=== PATIENT | female | born 1950 | race Caucasian/White ===

== ENCOUNTER 2020-05-28 09:26 | Observation (INO) | payer MEDICARE, SELFPAY ==
[2020-05-28] VITALS (15 sets, daily range): BP systolic 94–151; BP diastolic 43–100; PULSE 54–127; RESP 15–22; TEMP 36.6–36.9; O2SAT 92–98; BMI 29.1
--- NOTE | 2020-05-28 09:48 | ED_ITS ---
HPI - Arrhythmia/Palpitations General: Chief Complaint: Arrhythmia/Palpitations Stated Complaint: POSS AFIB Time Seen by Provider: 05/28/20 09:39 History of Present Illness: HPI narrative: 77-year-old female with a known history of atrial fibrillation began having palpitations last night she denies any chest pain she did get lightheaded and dizzy felt like she is in a pass out spontaneously try and go to the bathroom. Is only happened that one time. She normally has fairly good control of her atrial fibrillation she does have a history of coronary artery disease and had a stent placed 2 years ago. She currently is on clopidogrel but no other anticoagulants. She also has a history of hypothyroidism. MD complaint: rapid heart beat, heart racing and atrial fibrillation Onset (ago): hour(s) Duration: constant Severity: moderate Context: occurred during rest Arrhythmia history: atrial fibrillation Associated symptoms: Deny anxiety, cough, diaphoresis, muscle cramps, nausea, paresthesias, pre-syncope, sense of impending doom, short of breath, syncope or vomiting Treatments prior to arrival: beta-eugene (Took last night at her usual time) Review of Systems Const: Denies: diaphoresis ENMT: Denies: throat pain, ear or mastoid pain, nasal discharge or nasal congestion Card: Denies: syncope or pre-syncope Resp: Denies: dyspnea, productive cough or non-productive cough GI: Denies: nausea or vomiting : Denies: flank pain, difficulty voiding, dysuria, urinary frequency or urinary urgency Musc: Denies: muscle cramps Skin/Breast: Denies: rash or pruritus Psych: Denies: anxiety PFSH ED PFSH: Medical History (Updated 05/28/20 @ 20:50 by Corrina Calero MD) ASHD (arteriosclerotic heart disease) Atherosclerosis of coronary artery of [place] heart without angina pectoris Atrial fibrillation Benign essential hypertension with target blood pressure below 140/90 Dyslipidemia Alma's thyroiditis Hypothyroidism Intermittent atrial fibrillation Surgical History S/P hysterectomy Family History Other CAD (coronary artery disease) Diabetes Social History Smoking and tobacco status: never smoked Alcohol intake: never Household members: spouse Marital status: Physical Exam Const: COMMON NORMALS: no acute distress GENERAL APPEARANCE: cooperative and comfortable ORIENTATION/CONSCIOUSNESS: Yes awake, Yes oriented to person, Yes oriented to place and Yes oriented to time HENMT: COMMON NORMALS: normocephalic, atraumatic and hearing grossly normal bilaterally HEAD & SCALP: normocephalic and atraumatic Eye: COMMON NORMALS: Equal, round and reactive pupils present, EOMs intact bilaterally, conjunctivae normal and no scleral icterus CONJUNCTIVA: Yes conjunctivae normal PUPIL: Yes Equal, round and reactive pupils present Neck/C-Spine: COMMON NORMALS: full ROM, no lymphadenopathy and supple Lymph: LYMPHATIC: no lymphadenopathy noted and no lymphedema noted Resp: COMMON NORMALS: normal respiratory effort, No retractions, No use of accessory muscles and clear to auscultation bilaterally AUSCULTATION: clear to auscultation bilaterally Cardio: RATE: tachycardic RHYTHM: abnormal rhythm irregularly irregular GI: COMMON NORMALS: Soft to palpation and No hepatosplenomegaly present AUSCULTATION: Yes normoactive bowel sounds PALPATION: Yes Soft to palpation, No Tenderness to palpation present (GI), No Guarding due to palpation present (GI) and Yes No hepatosplenomegaly present Extremity: COMMON NORMALS: normal to inspection, capillary refill normal, no clubbing, cyanosis or edema, no calf tenderness and no pedal edema Neuro: SENSORIUM/ORIENTATION: Yes oriented to person, Yes oriented to place and Yes oriented to time Skin: COMMON NORMALS: no rashes or lesions noted GENERAL SKIN EXAM: no rashes or lesions noted Course Vital Signs: Vital signs: Vital Signs Temperature 98.2 F 05/29/20 04:00 Pulse Rate 48 L 05/29/20 04:00 Respiratory Rate 16 05/29/20 04:00 Blood Pressure 113/43 05/29/20 04:00 Pulse Oximetry 96 05/29/20 04:00 MDM - Arrhythmia/Palpitations MDM Narrative: Medical decision making narrative: Multiple attempts to control rate or convert. Patient denies any chest pain Trend remained at rest was relatively asymptomatic. Initially gave her 5 mg of IV Lopressor and an oral dose of Lopressor she had no real significant effect from either of those medications diltiazem was started she had good control of rate with a rate suppressed into the 80s however after a time when we discontinued the diltiazem to see if the rate would be maintained she resumed her rapid heart rate. Discussed with the patient she was maintaining a heart rate in the 110s to 120s while at rest with no exertional effort. Recommend that we put her on observation for further evaluation rate control and consideration of anticoagulation. Discussed with Dr. Miranda he will admit. Lab Data: Labs: Lab Results 05/28/20 05/28/20 05/28/20 Range/Units 09:47 09:47 09:47 WBC 5.8 (4.0-10.0) 10^3/ uL RBC 4.50 (4.1-5.3) 10^6/u L Hgb 13.9 (11.5-15.3) g/dL Hct 43.7 (37.0-47.0) % MCV 97.1 (81-99) fL MCH 30.9 (28.0-34.0) pg MCHC 31.8 (30.0-36.0) g/dL RDW 13.2 (12.1-15.1) % Plt Count 270 (130-400) 10^3/c mm MPV 11.2 H (7.4-10.4) fL Neut % (Auto) 76.7 % Lymph % (Auto) 16.0 % [place] % (Auto) 5.6 % Eos % (Auto) 1.2 % Baso % (Auto) 0.3 % Neut # (Auto) 4.41 (1.8-7.7) 10^3/u L Lymph # (Auto) 0.9 (0.8-4.8) 10^3/u L [place] # (Auto) 0.3 (0.2-0.9) 10^3/u L Eos # (Auto) 0.1 (0.0-0.8) 10^3/u L Baso # (Auto) 0.0 (0.0-0.1) 10^3/u L Nucleated RBC % (a uto) 0 % Nucleated RBCs # 0.0 /100WBC Sodium 142 (136-145) mmol/L Potassium 4.4 (3.5-5.1) mmol/L Chloride 108 H (98-107) mmol/L Carbon Dioxide 24 (22-29) mmol/L Anion Gap 14.4 (5-19) BUN 14 (8-23) mg/dL Creatinine 0.7 (0.5-0.9) mg/dL GFR Calculation Not Reportable Glucose 136 H (65-115) mg/dL Calculated Osmolal ity 297 H (285-295) mOsm/k g Calcium 9.5 (8.5-10.5) mg/dL Troponin T Baselin e 8 (0-10) ng/L Troponin T 120 Min malachi (0-10) ng/L Delta Troponin T (0-10) ABS# TSH 1.41 (0.27-4.20) uIU/ mL 05/28/20 Range/Units 12:06 WBC (4.0-10.0) 10^3/ uL RBC (4.1-5.3) 10^6/u L Hgb (11.5-15.3) g/dL Hct (37.0-47.0) % MCV (81-99) fL MCH (28.0-34.0) pg MCHC (30.0-36.0) g/dL RDW (12.1-15.1) % Plt Count (130-400) 10^3/c mm MPV (7.4-10.4) fL Neut % (Auto) % Lymph % (Auto) % [place] % (Auto) % Eos % (Auto) % Baso % (Auto) % Neut # (Auto) (1.8-7.7) 10^3/u L Lymph # (Auto) (0.8-4.8) 10^3/u L [place] # (Auto) (0.2-0.9) 10^3/u L Eos # (Auto) (0.0-0.8) 10^3/u L Baso # (Auto) (0.0-0.1) 10^3/u L Nucleated RBC % (a uto) % Nucleated RBCs # /100WBC Sodium (136-145) mmol/L Potassium (3.5-5.1) mmol/L Chloride (98-107) mmol/L Carbon Dioxide (22-29) mmol/L Anion Gap (5-19) BUN (8-23) mg/dL Creatinine (0.5-0.9) mg/dL GFR Calculation Glucose (65-115) mg/dL Calculated Osmolal ity (285-295) mOsm/k g Calcium (8.5-10.5) mg/dL Troponin T Baselin e (0-10) ng/L Troponin T 120 Min malachi 7.30 (0-10) ng/L Delta Troponin T -0.70 L (0-10) ABS# TSH (0.27-4.20) uIU/ mL Discharge Plan Discharge Admit Provider: Thony Suarez Discharge Date/Time: 05/28/20 13:34 Coding Level of Care Code ED Glass Toughening Operator for Chg Fwd Exam Comprehensive
--- NOTE | 2020-05-28 09:49 | ECG_ITS ---
[facility] Test Date: 2020-05-28 Pat Name: Harpreet Rouse Department: Room: Gender: Female Clinical Massage Therapist: : 1950 Requested By: Cole Woods Order Number: [id number] Collins MD: Romaine Kiser M.D. Measurements Intervals [place] Rate: 129 P: ID: -1 QRS: -19 QRSD: 88 T: 65 QT: 285 QTc: 418 Interpretive Statements ATRIAL FIBRILLATION WITH RAPID VENTRICULAR RESPONSE MODERATE ST DEPRESSION [0.05+ mV ST DEPRESSION] Compared to ECG 03/07/2018 00:44:35 ST (T wave) deviation now present Sinus bradycardia no longer present Electronically Signed On 05-28-2020 19:07:34 CDT by Romaine Kiser M.D. [email or web address]/store/[id number] f
[2020-05-28 09:58] LABS: Basophils % 0.3 %; Eosinophils # 0.1 10^3/uL (0.0-0.8); Eosinophils % 1.2 %; Hematocrit 43.7 % (37.0-47.0); Hemoglobin 13.9 g/dL (11.5-15.3); Lymphocytes # 0.9 10^3/uL (0.8-4.8); Mean Corpuscular HGB Conc 31.8 g/dL (30.0-36.0); Mean Corpuscular Hemoglobin 30.9 pg (28.0-34.0); Mean Corpuscular Volume 97.1 fL (81-99); Mean Platelet Volume 11.2 fL (7.4-10.4); Monocytes # 0.3 10^3/uL (0.2-0.9); Monocytes % 5.6 %; Neutrophils # 4.41 10^3/uL (1.8-7.7); Neutrophils % 76.7 %; Nucleated Red Blood Cells % 0 %; Platelet Count 270 10^3/cmm (130-400); Red Cell Distribution Width 13.2 % (12.1-15.1); White Blood Count 5.8 10^3/uL (4.0-10.0)
[2020-05-28] MEDS: metoprolol tartrate 1 mg/1 mL SDV 5 mL 5 MG IV (09:59)
[2020-05-28] MEDS: metoprolol tartrate 25 mg Tablet PO (09:59)
[2020-05-28 10:16] LABS: Troponin(5th) Baseline 8 ng/L (0-10)
[2020-05-28 10:24] LABS: Anion Gap 14.4 (5-19); Blood Urea Nitrogen 14 mg/dL (8-23); Calcium 9.5 mg/dL (8.5-10.5); Carbon Dioxide 24 mmol/L (22-29); Chloride 108 mmol/L (98-107); Glucose 136 mg/dL (65-115); Osmolality Calculated 297 mOsm/kg (285-295); Potassium 4.4 mmol/L (3.5-5.1); Sodium 142 mmol/L (136-145); Thyroid Stimulating Hormone 1.41 uIU/mL (0.27-4.20)
--- NOTE | 2020-05-28 11:49 | ECG_ITS ---
[facility] Test Date: 2020-05-28 Pat Name: Harpreet Rouse Department: Room: 105 Gender: Female Bottom Stop Attacher: : 1950 Requested By: oCle Woods Order Number: [id number] Collins MD: Romaine Kiser M.D. Measurements Intervals [place] Rate: 115 P: NC: -1 QRS: -10 QRSD: 88 T: 63 QT: 322 QTc: 447 Interpretive Statements ATRIAL FIBRILLATION WITH RAPID VENTRICULAR RESPONSE MODERATE ST DEPRESSION [0.05+ mV ST DEPRESSION] Compared to ECG 05/28/2020 09:36:45 No significant changes Electronically Signed On 05-28-2020 19:36:31 CDT by Romaine Kiser M.D. [email or web address] [email or web address] county memorial hospitalVANDOLAYmercy health kings [facility].Coll[employer]/store/NU/[id number] f
--- NOTE | 2020-05-28 13:45 | PC.NURSE ---
Received pt from ER Pt is alert, oriented, denies any chest pain, not in distress. Cardizem drip running at 5 mcg/min from ER. Pt telemonitor shows afib with rvr 120s to 130s. Cardizem drip increased to 10 mcg/min per protocol. Oriented pt to staff, checked VS. Call light within reach. Informed pt on care plans. Pt verbalizes understanding. Dr. Suarez notified on pt's arrival to floor.
--- NOTE | 2020-05-28 15:49 | ECG_ITS ---
[facility] Test Date: 2020-05-28 Pat Name: Harpreet Rouse Department: Room: 105 Gender: Female Senior Hydrogeologist: : 1950 Requested By: Cole Woods Order Number: [id number] Collins MD: Romaine Kiser M.D. Measurements Intervals [place] Rate: 95 P: MT: -1 QRS: -17 QRSD: 92 T: 64 QT: 362 QTc: 455 Interpretive Statements ATRIAL FIBRILLATION WITH ABERRANT CONDUCTION OR VENTRICULAR PREMATURE COMPLEXES SEPTAL MYOCARDIAL INFARCTION [40+ ms Q WAVE IN V1/V2], PROBABLY OLD Compared to ECG 05/28/2020 12:16:05 Ventricular premature complex(es) now present Aberrant conduction of supraventricular beat(s) now present Myocardial infarct finding now present ST (T wave) deviation no longer present Electronically Signed On 05-28-2020 19:33:35 CDT by Romaine Kiser M.D. [email or web address] [email or web address] BioTherapeuticsholmes county [facility].[employer]/store/OM/[id number]/[id number]
[2020-05-28 16:34] LABS: Troponin 5 6HR 6.49 ng/L (0-10)
[2020-05-28 16:36] LABS: Troponin 5 6HR Delta -1.51 ng/L (0-12)
--- NOTE | 2020-05-28 19:00 | PC.NURSE ---
183-Pt converted to Sinus rhythm HR-52-60s BP-107/59, Pt is laying bed. Cardizem drip decreased to 5 mcg/min. Notified Dr. Suarez via voalte phone.
--- NOTE | 2020-05-28 19:00 | PC.NURSE ---
Informed doctor in person that pt converted to SR Informed him that pt takes Metoprolol Succinate ER 37.5 mg in the evening. She felt hot flush. BP-102/55 sitting in the edge of bed, HR-54s-65s. Received verbal orders read back to stop Cardizem drip and start pt back on her home metoprolol dose.
--- NOTE | 2020-05-28 19:45 | PC.NURSE ---
Received a call from Dr. Calero as consultation Talked to Dr. Calero via phone. Updated Dr on pt's conversion to Sinus rhythm, HR-50s-65s w/symptom of hot flush during this time. BP-102/55 while sitting on the edge of bed. stated he will come in and see the pt.
--- NOTE | 2020-05-28 20:08 | PM.CONSULT ---
Providers/Reason For Consult Consulting Physican/Specialty*: JODI Calero MD/cardiology Reason for Consult*: Patient with atrial fibrillation's and rapid ventricular rate Attending Physician: Thony Suarez Primary Care Provider: Jose Hill MD History of Present Illness History of Present Illness Harpreet Rouse is a 69 year old female with a history of atherosclerotic heart disease, dyslipidemia and hypothyroidism, is admitted to hospital through the emergency room where she presented with complaints of palpitation and dizziness. She was found to be in atrial fibrillation rapid ventricular rate. She was started on IV Cardizem. Cardiology consult is requested for further cardiac evaluation recommendations. This patient has a history of atrial fibrillation off and on for the last many years. Approximately 12 years ago, she had the first episode of atrial fibrillation. Her second episode was 2 years ago. At that time, she presented with the palpitation and chest pain. Subsequently she had a cardiac radiation followed by PCI of the obtuse marginal 1 artery. Apparently patient has not had any recurrence of atrial fibrillation up until last night. Around midnight, she started having palpitations. Throughout the night, she had the fluttering feeling in the chest. This morning as she woke up, she is was feeling dizzy with palpitation. For that reason, she decided to come to the hospital. She did not have any chest pain or any unusual shortness of breath. No syncopal episodes. No others associated symptoms. She has a history of hypothyroidism and is on thyroid supplement. She also is known to have dyslipidemia. Review of Systems Narrative: CONSTITUTIONAL: No fever or chills. EYES: No blurring of vision or other visual disturbances lately. ENT: No hoarseness of voice, auditory disturbances or sore throat. CARDIOVASCULAR: As mentioned above. RESPIRATORY: No significant cough. GASTROINTESTINAL: No hematemesis or melena. GENITOURINARY: No dysuria or hematuria. INTEGUMENTARY: No skin rashes or history of skin cancer. NEURO: No transient ischemic attacks or amaurosis. PSYCHIATRIC: No history of psychosis or major depression. HEMATOLOGIC: No bleeding disorders or significant anemia. ENDOCRINE: History of hypothyroidism MUSCULOSKELETAL: No recent joint pain or swelling. ALLERGY/IMMUNOLOGY: As mentioned above. Meds/Allergies Home Medications and Allergies Home Medications Medication Instructions Recorded Confirmed Last Taken Type clopidogrel 75 mg tablet 75 mg PO DAILY 02/21/20 05/28/20 05/28/20 History isosorbide mononitrate 30 mg 15 mg PO DAILY tab 02/21/20 05/28/20 05/27/20 History tablet,extended release 24 hr omeprazole magnesium 20 mg 20 mg PO DAILY PRN 02/21/20 05/28/20 Unknown History tablet,delayed release pravastatin 20 mg tablet 10 mg PO DAILY tab 02/21/20 05/28/20 05/27/20 History metoprolol succinate 25 mg 37.5 mg PO DAILY #30 tab 02/22/20 05/28/20 05/27/20 Rx tablet,extended release 24 hr levothyroxine [Euthyrox] 100 mcg PO DAILY 05/28/20 05/28/20 05/28/20 History Allergies Allergy/AdvReac Type Severity Reaction Status Date / Time No Known Allergies Allergy Verified 02/21/20 15:44 Current Medications Current Medications Generic Name Dose Route Start Last Admin Trade Name Freq PRN Reason Stop Dose Admin Diltiazem HCl 125 mg/ Sodium 125 mls @ 0 mls/hr 05/28/20 10:45 05/28/20 19:18 Chloride IV 0 mg/hr .Q0M ROXANA 0 mls/hr Titration Protocol Per Protocol PFSH Acute PFSH: Medical History ASHD (arteriosclerotic heart disease) Atherosclerosis of coronary artery of [place] heart without angina pectoris Atrial fibrillation Benign essential hypertension with target blood pressure below 140/90 Alma's thyroiditis Hypothyroidism Intermittent atrial fibrillation Surgical History S/P hysterectomy Family History Other CAD (coronary artery disease) Diabetes Social History Smoking and tobacco status: never smoked Alcohol intake: never Household members: spouse Marital status: Vitals/I&O/Wt Last Vital Signs Temp 97.8 F 05/28/20 19:13 Pulse 60 05/28/20 19:13 Resp 22 H 05/28/20 19:13 BP 99/58 05/28/20 19:13 Pulse Ox 96 05/28/20 19:13 05/28/20 05/28/20 05/28/20 06:59 14:59 22:59 Intake Total 16.500 / 16.500 652.167 / 668.667 Balance 16.500 / 16.500 652.167 / 668.667 Weight last 48 hrs Weight 175 lb Physical Exam Narrative: EXAM NARRATIVE: GENERAL: The patient is alert and oriented times three. Not in any acute distress. HEENT: No significant pallor, icterus or lymphadenopathy. The pupils are reactant to light. Oral cavity: There are no mucous membrane lesions. Funduscopic examination: Fundus is not visualized NECK: Trachea appears to be central. No masses noted. No JVD or thyromegaly appreciated. No carotid bruit. RESPIRATORY: Chest is symmetrical. No intercostals muscle retraction or any accessory muscle activation. There is no chest wall tenderness. Breath sounds are heard bilaterally. No rales or rhonchi heard. No evidence of any consolidation. BREASTS: Deferred. HEART: The PMI could not be palpated. First second heart sounds are normal. No S3. No severe murmurs. No pericardial rub. ABDOMEN: No vessel pulsations or distention. No tenderness. No organomegaly appreciated. No abdominal bruit. Bowel sounds are normally heard. : Deferred. RECTAL: Deferred. LYMPHATIC: No lymphadenopathy noted in the neck or groin. EXTREMITIES: No edema or cyanosis. No clubbing. The pulses are symmetrical bilaterally. The radial, femoral, dorsalis pedis and the posterior tibial pulses are palpated and found to be in good volume and amplitude. MUSCULOSKELETAL: No acute joint deformities or swelling. SKIN: There are no significant scars or skin rash noted. NEUROPSYCHIATRIC: The patient is alert and oriented x3. Appears to be in a good mood. The higher functions are grossly within normal limits. No tremors or rigidity noted. Data Labs: Other Labs: Laboratory Last Values WBC 5.8 10^3/uL (4.0- 10.0) 05/28/20 09:47 RBC 4.50 10^6/uL (4.1 -5.3) 05/28/20 09:47 Hgb 13.9 g/dL (11.5-1 5.3) 05/28/20 09:47 Hct 43.7 % (37.0-47.0 ) 05/28/20 09:47 MCV 97.1 fL (81-99) 05/28/20 09:47 MCH 30.9 pg (28.0-34. 0) 05/28/20 09:47 MCHC 31.8 g/dL (30.0-3 6.0) 05/28/20 09:47 RDW 13.2 % (12.1-15.1 ) 05/28/20 09:47 Plt Count 270 10^3/cmm (130 -400) 05/28/20 09:47 MPV 11.2 fL (7.4-10.4 ) H 05/28/20 09:47 Neut % (Auto) 76.7 % 05/28/20 09:47 Lymph % (Auto) 16.0 % 05/28/20 09:47 [place] % (Auto) 5.6 % 05/28/20 09:47 Eos % (Auto) 1.2 % 05/28/20 09:47 Baso % (Auto) 0.3 % 05/28/20 09:47 Neut # (Auto) 4.41 10^3/uL (1.8 -7.7) 05/28/20 09:47 Lymph # (Auto) 0.9 10^3/uL (0.8- 4.8) 05/28/20 09:47 [place] # (Auto) 0.3 10^3/uL (0.2- 0.9) 05/28/20 09:47 Eos # (Auto) 0.1 10^3/uL (0.0- 0.8) 05/28/20 09:47 Baso # (Auto) 0.0 10^3/uL (0.0- 0.1) 05/28/20 09:47 Nucleated RBC % (a uto) 0 % 05/28/20 09:47 Nucleated RBCs # 0.0 /100WBC 05/28/20 09:47 Sodium 142 mmol/L (136-1 45) 05/28/20 09:47 Potassium 4.4 mmol/L (3.5-5 .1) 05/28/20 09:47 Chloride 108 mmol/L (98-10 7) H 05/28/20 09:47 Carbon Dioxide 24 mmol/L (22-29) 05/28/20 09:47 Anion Gap 14.4 (5-19) 05/28/20 09:47 BUN 14 mg/dL (8-23) 05/28/20 09:47 Creatinine 0.7 mg/dL (0.5-0. 9) 05/28/20 09:47 GFR Calculation Not Reportable 05/28/20 09:47 Glucose 136 mg/dL (65-115 ) H 05/28/20 09:47 Calculated Osmolal ity 297 mOsm/kg (285- 295) H 05/28/20 09:47 Calcium 9.5 mg/dL (8.5-10 .5) 05/28/20 09:47 Troponin T Baselin e 8 ng/L (0-10) 05/28/20 09:47 Troponin T 120 Min malachi 7.30 ng/L (0-10) 05/28/20 12:06 Delta Troponin T -0.70 ABS# (0-10) L 05/28/20 12:06 Troponin T Hi Sens 6Hr 6.49 ng/L (0-10) 05/28/20 15:58 Troponin T Hi Sens 6Hr Delta -1.51 ng/L (0-12) L 05/28/20 15:58 TSH 1.41 uIU/mL (0.27 -4.20) 05/28/20 09:47 Cardiac catheterization in March 2018 revealed #1 Left main is normal #2 LAD has proximal 30% stenosis rest of vessel did not have any significant abnormality #3 LCx has luminal irregularities while obtuse marginal 1 is moderate size and caliber vessel which has proximal 75% napkin ring type lesion #4 RCA is a nondominant vessel with luminal irregularities The EKG revealed Atrial fibrillation with controlled ventricular response rate of 95 bpm. Abberrantly conducted beats/PVCs Possible old septal ND. Nonspecific ST changes in the anterolateral leads. A&P Assessment and plan (1) Intermittent atrial fibrillation: Patient has features of intermittent atrial fibrillation. Her episodes are very infrequent, I may hold off on any antiarrhythmic drugs at this time. We will go up on the metoprolol to 50 mg p.o. daily. Also may do an echocardiogram to evaluate the LV function and also the left atrium. If she has a dilated left atrium, we also may need to start her on long-term oral anticoagulation. I may start her on therapeutic dose of Lovenox for the time being. Status: Acute (2) Atherosclerosis of coronary artery of [place] heart without angina pectoris: Because of her previous history of coronary artery disease, presented with atrial fibrillation, I may go ahead and do a myocardial perfusion imaging, to rule out any underlying ischemia. After reviewing the results, further recommendations will be made. Status: Acute Qualifiers: Coronary Disease-Associated Artery/Lesion type: [place] artery Qualified Code(s): I25.10 - Atherosclerotic heart disease of [place] coronary artery without angina pectoris (3) Dyslipidemia: May continue on the current medications. Status: Acute (4) Hypothyroidism: May continue on the thyroid supplement. Status: Acute Qualifiers: Hypothyroidism type: due to Alma's thyroiditis Qualified Code(s): E03.8 - Other specified hypothyroidism; E06.3 - Autoimmune thyroiditis Additional A&P Information After reviewing the above and also based on the patient clinical progress, further recommendations will be made. Thank you for the opportunity to eval this patient make these recommendations Coding Level of Care Code Acute Is Technician for Joan Nicoled Diagnoses Intermittent atrial fibrillation I48.0 Atherosclerosis of coronary artery of [place] heart without angina pectoris I25.10 Coronary Disease-Associated Artery/Lesion type: [place] artery Dyslipidemia E78.5 Hypothyroidism E03.8; E06.3 Hypothyroidism type: due to Alma's thyroiditis
--- NOTE | 2020-05-28 20:27 | PM.HP ---
Providers/Chief Complaint Admitting Physician: Thony Suarez Primary Care Provider: Jose Hill MD Chief Complaint: POSS AFIB History of Present Illness Harpreet Rouse is a 69 year old female with past medical history of coronary artery disease and paroxysmal atrial fibrillation who presented to emergency room with complaints of new onset palpitations and associated lightheadedness and dizziness. Patient was found to have A. fib with RVR. Denies any associated chest pain or shortness of breath. No peripheral swelling. Reports similar episodes in the past. She was started on diltiazem drip and feels better currently. Review of Systems General: Reports: 10 or more systems reviewed and unremarkable except in HPI and below Medications/Allergies Home Medications Medication Instructions Recorded Confirmed Last Taken Type clopidogrel 75 mg tablet 75 mg PO DAILY 02/21/20 05/28/20 05/28/20 History isosorbide mononitrate 30 mg 15 mg PO DAILY tab 02/21/20 05/28/20 05/27/20 History tablet,extended release 24 hr omeprazole magnesium 20 mg 20 mg PO DAILY PRN 02/21/20 05/28/20 Unknown History tablet,delayed release pravastatin 20 mg tablet 10 mg PO DAILY tab 02/21/20 05/28/20 05/27/20 History metoprolol succinate 25 mg 37.5 mg PO DAILY #30 tab 02/22/20 05/28/20 05/27/20 Rx tablet,extended release 24 hr levothyroxine [Euthyrox] 100 mcg PO DAILY 05/28/20 05/28/20 05/28/20 History Allergies Allergy/AdvReac Type Severity Reaction Status Date / Time No Known Allergies Allergy Verified 02/21/20 15:44 PFSH Acute PFSH: Medical History ASHD (arteriosclerotic heart disease) Atherosclerosis of coronary artery of [place] heart without angina pectoris Atrial fibrillation Benign essential hypertension with target blood pressure below 140/90 Alma's thyroiditis Hypothyroidism Intermittent atrial fibrillation Surgical History S/P hysterectomy Family History Other CAD (coronary artery disease) Diabetes Social History Smoking and tobacco status: never smoked Alcohol intake: never Household members: spouse Marital status: Vitals/I&O/Wt Last Vital Signs Temp 97.8 F 05/28/20 19:13 Pulse 60 05/28/20 19:13 Resp 22 H 05/28/20 19:13 BP 99/58 05/28/20 19:13 Pulse Ox 96 05/28/20 19:13 05/28/20 05/28/20 05/28/20 06:59 14:59 22:59 Intake Total 16.500 / 16.500 648.167 / 664.667 Balance 16.500 / 16.500 648.167 / 664.667 Weight last 48 hrs Weight 79.379 kg Physical Exam Narrative: EXAM NARRATIVE: The patient is awake alert oriented. No acute distress. Mood and affect are appropriate. Responses are adequate. Skin is warm and dry. Moist mucous membranes. No JVD Lungs are clear to auscultation bilaterally. No respiratory distress Heart S1, S2, irregularly irregular Abdomen soft, nontender, bowel sounds are present Extremities trace edema no cyanosis no calf tenderness bilaterally Neuro examination is nonfocal. Normal speech. Eyes Az, extraocular muscles are intact. Data : 05/28/20 09:47 05/28/20 09:47 Other data: Laboratory Results WBC 5.8 10^3/uL (4.0-10.0) 05/28/20 09:47 RBC 4.50 10^6/uL (4.1-5.3) 05/28/20 09:47 Hgb 13.9 g/dL (11.5-15.3) 05/28/20 09:47 Hct 43.7 % (37.0-47.0) 05/28/20 09:47 MCV 97.1 fL (81-99) 05/28/20 09:47 MCH 30.9 pg (28.0-34.0) 05/28/20 09:47 MCHC 31.8 g/dL (30.0-36.0) 05/28/20 09:47 RDW 13.2 % (12.1-15.1) 05/28/20 09:47 Plt Count 270 10^3/cmm (130-400) 05/28/20 09:47 MPV 11.2 fL (7.4-10.4) H 05/28/20 09:47 Neut % (Auto) 76.7 % 05/28/20 09:47 Lymph % (Auto) 16.0 % 05/28/20 09:47 [place] % (Auto) 5.6 % 05/28/20 09:47 Eos % (Auto) 1.2 % 05/28/20 09:47 Baso % (Auto) 0.3 % 05/28/20 09:47 Neut # (Auto) 4.41 10^3/uL (1.8-7.7) 05/28/20 09:47 Lymph # (Auto) 0.9 10^3/uL (0.8-4.8) 05/28/20 09:47 [place] # (Auto) 0.3 10^3/uL (0.2-0.9) 05/28/20 09:47 Eos # (Auto) 0.1 10^3/uL (0.0-0.8) 05/28/20 09:47 Baso # (Auto) 0.0 10^3/uL (0.0-0.1) 05/28/20 09:47 Nucleated RBC % (auto) 0 % 05/28/20 09:47 Nucleated RBCs # 0.0 /100WBC 05/28/20 09:47 Sodium 142 mmol/L (136-145) 05/28/20 09:47 Potassium 4.4 mmol/L (3.5-5.1) 05/28/20 09:47 Chloride 108 mmol/L (98-107) H 05/28/20 09:47 Carbon Dioxide 24 mmol/L (22-29) 05/28/20 09:47 Anion Gap 14.4 (5-19) 05/28/20 09:47 BUN 14 mg/dL (8-23) 05/28/20 09:47 Creatinine 0.7 mg/dL (0.5-0.9) 05/28/20 09:47 GFR Calculation Not Reportable 05/28/20 09:47 Glucose 136 mg/dL (65-115) H 05/28/20 09:47 Calculated Osmolality 297 mOsm/kg (285-295) H 05/28/20 09:47 Calcium 9.5 mg/dL (8.5-10.5) 05/28/20 09:47 Troponin T Baseline 8 ng/L (0-10) 05/28/20 09:47 Troponin T 120 Minute 7.30 ng/L (0-10) 05/28/20 12:06 Delta Troponin T -0.70 ABS# (0-10) L 05/28/20 12:06 Troponin T Hi Sens 6Hr 6.49 ng/L (0-10) 05/28/20 15:58 Troponin T Hi Sens 6Hr Delta -1.51 ng/L (0-12) L 05/28/20 15:58 TSH 1.41 uIU/mL (0.27-4.20) 05/28/20 09:47 A&P Additional A&P Information 69-year-old female with past medical history of coronary artery disease, stent, paroxysmal A. fib who is presenting with palpitations and dizziness. A. fib with RVR. The patient is going to the cardiac unit with IV diltiazem. We will switch her to p.o. medications after initial stabilization. We will check her TSH. Will request cardiology consultation. I will discuss with the fish warden regarding anticoagulation. Her chads vasc score is 3. She is on Plavix for management of coronary artery disease. Coronary artery disease. We will continue her home medications. Currently stable. History of dyslipidemia. We will continue her statin. History of GERD. We will continue her home medication. DVT prophylaxis. Lovenox. Full code. The plan of care was discussed with the patient. I also discussed with Dr. Calero. I appreciate his input. Attestations Medical Necessity Statement*: Observation Coding Level of Care Code Acute Clinical Account Specialist for Joan Martinez
--- NOTE | 2020-05-28 20:32 | PC.NURSE ---
Dr. Calero in room Received verbal order read back to stop Metoprolol Succinate ER 37.5 mg. To give 50 mg dose now.
--- NOTE | 2020-05-28 20:41 | ECG_ITS ---
[facility] Test Date: 2020-05-29 Pat Name: Harpreet Rouse Department: Room: 105 Gender: Female Electronic Organ Technician: : [id number] Requested By: Corrina Calero Order Number: [id number] Collins MD: Corrina Calero M.D. Interpretive Statements NAME OF STUDY: LEXISCAN SESTAMIBI STRESS TEST INDICATION: ashd/afib, PROCEDURE: At the baseline, the EKG revealed sinus bradycardia with a rate of [address] changes. The baseline blood pressure was 118/65 mm Hg with a heart rate of 51 beats/min. Lexiscan was infused over a period of 20 seconds. A total of 0.4 milligrams of Lexiscan was infused. The stress phase was continued for a total of 5 minutes. Heart rate at the end of the stress phase was 65 with a blood pressure 135/63. The EKG at the peak infusion revealed no significant changes. Sestamibi was injected 20 seconds after the Lexiscan infusion. Blood pressure at the end of the recovery phase was 135/63 with a heart rate of 61 per minute. CONCLUSION: 1. No significant EKG changes with the LexiScan infusion 2. No LexiScan induced chest pain or cardiac arrhythmia 3. Normal blood pressure and heart rate response 4. Sestamibi/sestamibi perfusion scan pending; see separate report. Electronically Signed On 06-01-2020 17:47:46 CDT by Corrina Calero M.D. [id number]
[2020-05-28] MEDS: metoprolol succinate ER (24 HR) 50 mg Tablet PO (21:15)
[2020-05-28] MEDS: enoxaparin 80 mg/0.8 mL Syringe SUBCUT (21:16)
[2020-05-29] VITALS (9 sets, daily range): BP systolic 113–158; BP diastolic 43–72; PULSE 47–61; RESP 13–18; TEMP 36.3–36.8; O2SAT 95–98
--- NOTE | 2020-05-29 00:34 | ECG_ITS ---
[facility] Test Date: 2020-05-29 Pat Name: Harpreet Rouse Department: Room: 105 Gender: Female Agricultural Agent: : 1950 Requested By: Thony Broderick Order Number: [id number] Collins MD: Corrina Calero M.D. Measurements Intervals Harris Rate: 47 P: 62 DE: 144 QRS: -28 QRSD: 96 T: 37 QT: 487 QTc: 433 Interpretive Statements SINUS BRADYCARDIA BORDERLINE LEFT AXIS DEVIATION [QRS AXIS < -20] MINIMAL ST DEPRESSION [0.025+ mV ST DEPRESSION] Compared to ECG 05/28/2020 15:39:57 ST (T wave) deviation now present Atrial fibrillation no longer present Ventricular premature complex(es) no longer present Aberrant conduction of supraventricular beat(s) no longer present Myocardial infarct finding no longer present Electronically Signed On 05-29-2020 18:35:59 CDT by Corrina Calero M.D. [id number]
[2020-05-29 04:17] LABS: Basophils % 0.3 %; Eosinophils # 0.2 10^3/uL (0.0-0.8); Hematocrit 40.2 % (37.0-47.0); Hemoglobin 12.3 g/dL (11.5-15.3); Lymphocytes % 31.4 %; Mean Corpuscular HGB Conc 30.6 g/dL (30.0-36.0); Mean Corpuscular Hemoglobin 30.5 pg (28.0-34.0); Mean Corpuscular Volume 99.8 fL (81-99); Mean Platelet Volume 11.3 fL (7.4-10.4); Monocytes # 0.4 10^3/uL (0.2-0.9); Monocytes % 5.9 %; Neutrophils # 3.69 10^3/uL (1.8-7.7); Neutrophils % 59.2 %; Nucleated Red Blood Cells % 0 %; Platelet Count 238 10^3/cmm (130-400); Red Blood Count 4.03 10^6/uL (4.1-5.3); Red Cell Distribution Width 13.4 % (12.1-15.1); White Blood Count 6.2 10^3/uL (4.0-10.0)
[2020-05-29 04:51] LABS: Anion Gap 15.4 (5-19); Blood Urea Nitrogen 22 mg/dL (8-23); Calcium 8.7 mg/dL (8.5-10.5); Carbon Dioxide 24 mmol/L (22-29); Chloride 106 mmol/L (98-107); Glucose 98 mg/dL (65-115); Osmolality Calculated 295 mOsm/kg (285-295); Potassium 4.4 mmol/L (3.5-5.1); Sodium 141 mmol/L (136-145)
[2020-05-29 04:59] LABS: Alanine Aminotransferase 16 U/L (0-33); Albumin Level 3.7 g/dL (3.5-5.2); Alkaline Phosphatase 58 IU/L (35-105); Anion Gap 14.1 (5-19); Aspartate Amino Transferase 17 U/L (0-32); Blood Urea Nitrogen 24 mg/dL (8-23); Calcium 8.6 mg/dL (8.5-10.5); Carbon Dioxide 25 mmol/L (22-29); Chloride 106 mmol/L (98-107); Globulin 2.7 g/dL (1.3-4.6); Glucose 100 mg/dL (65-115); Osmolality Calculated 296 mOsm/kg (285-295); Potassium 4.1 mmol/L (3.5-5.1); Sodium 141 mmol/L (136-145); Total Bilirubin 0.5 mg/dL (0.15-1.2); Total Protein 6.4 g/dL (6.6-8.7)
[2020-05-29 05:05] LABS: Chol HDL Ratio 3.15 mg/dL (0.0-4.40); Cholesterol 170 mg/dL (0-200); HDL Cholesterol 54 mg/dL (60-100); LDL Cholesterol Calculated 91 mg/dL (50-129); LDL HDL Ratio 1.69 RATIO (0.00-3.22); Thyroid Stimulating Hormone 1.16 uIU/mL (0.27-4.20); Triglycerides 124 mg/dL (0-150)
--- NOTE | 2020-05-29 07:24 | PC.NURSE ---
Patient resting in bed at time of assessment. Patient denies any CP or SOB. Patient has been injected for stress test this am. Patient does not have any questions about procedure. No further needs identified at this time. Nurse to continue to monitor.
--- NOTE | 2020-05-29 07:41 | PC.NURSE ---
Patient to stress test. Stable at this time.
[2020-05-29] MEDS: regadenoson 0.4 Mg/5 ml Syringe IVP (08:12)
--- NOTE | 2020-05-29 09:59 | PC.NURSE ---
Patient back from stress test. HR 53, BP 158/72. Dr. Calero updated on patient condition. Physician gave telephone order to change metoprolol administration time to bedtime. RBVO. Nurse to continue to monitor.
[2020-05-29] MEDS: levothyroxine 100 mcg Tablet PO (10:08)
[2020-05-29] MEDS: clopidogrel 75 mg Tablet PO (10:08)
--- NOTE | 2020-05-29 13:59 | P.DS_ITS ---
Discharge Providers Date of Admission: 05/28/20 12:50 Date of Discharge: May 29, 2020 Attending Provider at Admission: Thony Suarez Attending Provider at Discharge: Thony Suarez Primary Care Provider: Jose Hill MD Diagnoses at Discharge Discharge Diagnosis (1) Intermittent atrial fibrillation: Status: Acute (2) Atherosclerosis of coronary artery of [place] heart without angina pectoris: Status: Acute Qualifiers: Coronary Disease-Associated Artery/Lesion type: [place] artery Qualified Code(s): I25.10 - Atherosclerotic heart disease of [place] coronary artery without angina pectoris (3) Dyslipidemia: Status: Acute (4) Hypothyroidism: Status: Acute Qualifiers: Hypothyroidism type: due to Alma's thyroiditis Qualified Code(s): E03.8 - Other specified hypothyroidism; E06.3 - Autoimmune thyroiditis Reason for Visit Reason for Visit: POSS AFIB Hospital Course Discharge Summary: This is a 69-year-old female with past medical history of atrial fibrillation and coronary artery disease who presented with complaints of palpitations. The patient was found to have A. fib with RVR. The patient was seen and evaluated by Dr. Calero. Medications were adjusted. Currently in sinus. Started on anticoagulation. Will be switched to Eliquis per Dr. Frausto recommendations at discharge. Metoprolol dose is increased. She will continue follow-up with her primary home care provider Dr. Zuniga. Underwent nuclear stress test. IMPRESSIONS 1. Myocardial perfusion may revealing patchy areas of persistent decreases uptake in the anterior wall and inferior wall regions, most likely represent attenuation artifacts. 2. Normal LV ejection fraction of 72% 3. LV wall motion analysis revealing no gross wall motion normalities. 4. Normal LV volume. 5. Slightly elevated transient ischemic dilatation ratio, may suggest endocardial ischemia. However the positive predictive value this finding is limited. Clinical correlation is recommended. Dr. Calero recommended medical management and outpatient follow-up with Dr. Zuniga. He recommended to continue Plavix for now. Echo conclusions Normal left ventricular size and systolic function, EF 57 %. No regional wall motion abnormalities. Mild biatrial enlargement Thickened aortic valve. Mild tricuspid valve regurgitation. Normal pulmonary artery peak systolic pressure. There is no pericardial effusion. There are no intracardiac masses. No previous study is available for comparison. Dr. Calero recommended to continue anticoagulation to prevent CVA. The patient was informed about changes to her medications. She verbalized understanding of the instructions. The patient was also asked to come back to emergency room if she develops any new cardiac or other issues including symptoms of GI bleeding such as lightheadedness dizziness shortness of breath rectal blood or black stool She is doing well and is eager to go home. Denies any chest pain, palpitations, shortness of breath, lightheadedness or dizziness. Physical Exam Narrative: EXAM NARRATIVE: The patient is awake alert oriented. No acute distress. Mood and affect are appropriate. Responses are adequate. Skin is warm and dry. Moist mucous membranes. No JVD Lungs are clear to auscultation bilaterally. No respiratory distress Heart S1, S2, regular. Abdomen soft, nontender, bowel sounds are present Extremities trace edema no cyanosis no calf tenderness bilaterally Neuro examination is nonfocal. Normal speech. Eyes Az, extraocular muscles are intact. Discharge Data Data Completed and Pending: Completed Studies During Hospitalization Category Date Time Status Sestamibi Stress Test Request Reji ne Exams 05/28/20 20:41 Draft NM uriel perf SPECT r/s* [id number] Routin e Nuc Med 05/29/20 20:42 Completed CV echo complete* [id number] Routine Ultrasound 05/29/20 20:41 Completed Pending at discharge Category Date Time Status Complete Blood Co unt w/Auto AM LABS Lab 05/30/20 04:00 Ordered Magnesium AM LABS Lab 05/30/20 04:00 Ordered Renal Function Pa jude AM LABS Lab 05/30/20 04:00 Ordered Labs from last 24 hours 05/29/20 05/29/20 05/29/20 03:38 03:38 03:38 WBC 6.2 RBC 4.03 L Hgb 12.3 Hct 40.2 MCV 99.8 H MCH 30.5 MCHC 30.6 RDW 13.4 Plt Count 238 MPV 11.3 H Neut % (Auto) 59.2 Lymph % (Auto) 31.4 Cross % (Auto) 5.9 Eos % (Auto) 3.0 Baso % (Auto) 0.3 Neut # (Auto) 3.69 Lymph # (Auto) 2.0 Cross # (Auto) 0.4 Eos # (Auto) 0.2 Baso # (Auto) 0.0 Nucleated RBC % (a uto) 0 Nucleated RBCs # 0.0 Sodium 141 Potassium 4.1 Chloride 106 Carbon Dioxide 25 Anion Gap 14.1 BUN 24 H Creatinine 0.6 GFR Calculation Not Reportable Glucose 100 Calculated Osmolal ity 296 H Calcium 8.6 Magnesium Total Bilirubin 0.5 AST 17 ALT 16 Alkaline Phosphata se 58 Troponin T Hi Sens 6Hr Troponin T Hi Sens 6Hr Delta Total Protein 6.4 L Albumin 3.7 Globulin 2.7 Triglycerides 124 Cholesterol 170 LDL Cholesterol, C alc 91 HDL Cholesterol 54 L LDL/HDL Ratio 1.69 Cholesterol/HDL Ra kim 3.15 TSH 1.16 05/29/20 05/28/20 03:38 15:58 WBC RBC Hgb Hct MCV MCH MCHC RDW Plt Count MPV Neut % (Auto) Lymph % (Auto) Cross % (Auto) Eos % (Auto) Baso % (Auto) Neut # (Auto) Lymph # (Auto) Cross # (Auto) Eos # (Auto) Baso # (Auto) Nucleated RBC % (a uto) Nucleated RBCs # Sodium 141 Potassium 4.4 Chloride 106 Carbon Dioxide 24 Anion Gap 15.4 BUN 22 Creatinine 0.6 GFR Calculation Not Reportable Glucose 98 Calculated Osmolal ity 295 Calcium 8.7 Magnesium 2.0 Total Bilirubin AST ALT Alkaline Phosphata se Troponin T Hi Sens 6Hr 6.49 Troponin T Hi Sens 6Hr Delta -1.51 L Total Protein Albumin Globulin Triglycerides Cholesterol LDL Cholesterol, C alc HDL Cholesterol LDL/HDL Ratio Cholesterol/HDL Ra kim TSH Vitals: Last Vital Signs Temp 97.4 F L 05/29/20 11:03 Pulse 51 L 05/29/20 11:03 Resp 13 05/29/20 11:03 BP 148/64 05/29/20 11:03 Pulse Ox 98 05/29/20 11:03 Discharge Plan Discharge Patient Disposition: Home Condition: Stable Prescriptions: New metoprolol succinate 50 mg Tablet Extended Release 24 Hr 50 mg PO BEDTIME Qty: 30 RF: 0 Eliquis 5 mg Tablet 5 mg PO BID Qty: 60 RF: 0 Continued clopidogrel 75 mg tablet 75 mg PO DAILY RF: 0 omeprazole magnesium [Prilosec OTC] 20 mg tablet,delayed release (DR/EC) 20 mg PO DAILY PRN (Reason: Heartburn) RF: 0 pravastatin 20 mg tablet 10 mg PO DAILY RF: 0 isosorbide mononitrate 30 mg tablet extended release 24 hr 15 mg PO DAILY RF: 0 Euthyrox 100 mcg tablet 100 mcg PO DAILY RF: 0 Discontinued metoprolol succinate [Toprol XL] 25 mg tablet extended release 24 hr 37.5 mg PO DAILY Qty: 30 RF: 3 Discharge Orders: Discharge Order (Routine); Ordered 05/29/20 Ordered By: Thony Suarez Referrals: Jose Hill MD [Primary Care Provider] - 1 week (Please follow-up with Dr. Hill on at 10:45a.m. If you have any questions or need to reschedule. Please call ) Oren Zuniga MD [Physician] - 1 week Discharge Diet: Cardiac Discharge Activity: Resume usual activity Patient Instructions: Apixaban (By mouth), Atrial Fibrillation (DC) Activity Restrictions/Additional Instructions: Please come back to emergency room if develop any new palpitations, dizziness or lightheadedness, chest pain, shortness of breath, swelling, rectal blood or black stool, confusion, or any other new complaints. Discharge Attestations Time Spent in Discharge Care*: less than 30 min Quality Metrics Clinical Quality Measures During this hospital stay, did patient experience: None Coding Level of Care Code Acute Soda Dialyzer for Chg Fwd Diagnoses Intermittent atrial fibrillation I48.0 Atherosclerosis of coronary artery of [place] heart without angina pectoris I25.10 Coronary Disease-Associated Artery/Lesion type: [place] artery Dyslipidemia E78.5 Hypothyroidism E03.8; E06.3 Hypothyroidism type: due to Alma's thyroiditis
--- NOTE | 2020-05-29 15:40 | PC.NURSE ---
Discharge instructions given per the physician's orders. Patient verbalized understanding of teaching and did not have any further questions. IV has been removed. Patient dressed self. Patient has been notified of discharge.
--- NOTE | 2020-05-29 18:13 | P.PN_ITS ---
Subjective Subjective: Interval history: Patient is doing okay. She has not had any chest pain or palpitations. No dizziness or syncopal episode. She had a myocardial perfusion imaging today. She was found to have no significant ischemia. Transient ischemic dilatation ratio was found to be elevated. Medications: Reviewed: Yes Vitals/I&O/Wt Last Vital Signs Temp 97.4 F L 05/29/20 11:03 Pulse 60 05/29/20 16:01 Resp 18 05/29/20 16:01 BP 152/58 05/29/20 16:01 Pulse Ox 95 05/29/20 16:01 05/29/20 05/29/20 05/29/20 06:59 14:59 22:59 Intake Total 240 / 240 Balance 240 / 240 Weight last 48 hrs Weight 175 lb Physical Exam Narrative: EXAM NARRATIVE: GENERAL: The patient is alert and oriented times three. Not in any acute distress. HEENT: No significant pallor, icterus or lymphadenopathy. NECK: Trachea appears to be central. No masses noted. No JVD or thyromegaly appreciated. No carotid bruit. RESPIRATORY: Chest is symmetrical. No intercostals muscle retraction or any accessory muscle activation. There is no chest wall tenderness. Breath sounds are heard bilaterally. No rales or rhonchi heard. No evidence of any consolidation. BREASTS: Deferred. HEART: The PMI could not be palpated. First second heart sounds are normal. No S3. No severe murmurs. No pericardial rub. ABDOMEN: No vessel pulsations or distention. No tenderness. No organomegaly appreciated. No abdominal bruit. Bowel sounds are normally heard. : Deferred. RECTAL: Deferred. LYMPHATIC: No lymphadenopathy noted in the neck or groin. EXTREMITIES: No edema or cyanosis. No clubbing. The pulses are symmetrical bilaterally. The radial, femoral, dorsalis pedis and the posterior tibial pulses are palpated and found to be in good volume and amplitude. MUSCULOSKELETAL: No acute joint deformities or swelling. SKIN: There are no significant scars or skin rash noted. NEUROPSYCHIATRIC: The patient is alert and oriented x3. Appears to be in a good mood. The higher functions are grossly within normal limits. No tremors or rigidity noted. Data : 05/29/20 03:38 05/29/20 03:38 A&P Assessment and plan (1) Intermittent atrial fibrillation: Patient seems to be doing okay with the current dose of the metoprolol. She may continue on the current medications. Status: Acute (2) Atherosclerosis of coronary artery of [place] heart without angina pectoris: The myocardial perfusion imaging results are discussed with the patient. Since she has no chest pain or any specific cardiac symptoms, I may hold off on any further investigations at this time. The implications of the elevated tr ansient ischemic dilatation ratio was discussed with the patient and is understood well. The echocardiogram results also were discussed. Patient was found to have mild biatrial enlargement. In view of her coronary artery disease, intermittent atrial fibrillation and the dilated atria, she carries a high risk for thromboembolism. Status: Acute Qualifiers: Coronary Disease-Associated Artery/Lesion type: [place] artery Qualified Code(s): I25.10 - Atherosclerotic heart disease of [place] coronary artery without angina pectoris (3) Dyslipidemia: May continue on the current medications. Status: Acute (4) Hypothyroidism: May continue on the thyroid supplement. Status: Acute Qualifiers: Hypothyroidism type: due to Alma's thyroiditis Qualified Code(s): E03.8 - Other specified hypothyroidism; E06.3 - Autoimmune thyroiditis Additional A&P Information Discussed with Dr Suarez also about the further management options. Since the patient is doing okay with no specific symptoms, it may be appropriate to continue the current medications. Because of the biatrial enlargement, coronary artery disease and intermittent atrial fibrillation, it would be appropriate to start her on Eliquis. If she continues remain stable, may be discharged home from a cardiac standpoint. Please make an appointment to see Dr. Zuniga in 1 month. Attestations Medical Necessity Statement*: Discharge home today Coding Level of Care Code Acute Clinical Laboratory Director for Ailing Fwd Diagnoses Intermittent atrial fibrillation I48.0 Atherosclerosis of coronary artery of [place] heart without angina pectoris I25.10 Coronary Disease-Associated Artery/Lesion type: [place] artery Dyslipidemia E78.5 Hypothyroidism E03.8; E06.3 Hypothyroidism type: due to Alma's thyroiditis
--- NOTE | 2020-05-29 20:41 | USCV_ITS ---
Harpreet Rouse Age: 69 Gender: F : 1950 Exam Date: 05/29/2020 06:09 Ordering Phys: Corrina Calero MD ([email or web address]) Technologist: Clarita Powers Exam Location: [facility] – [place] Indication: AFIB AND CAD BP: / HR: 50 Rhythm: Sinus Technical Quality: Adequate MEASUREMENTS (Male / Female) Normal Values 2D ECHO LV Diastolic Diameter PLAX 4.2 cm 4.2 - 5.9 / 3.9 - 5.3 cm LV Systolic Diameter PLAX 2.8 cm LV Chamber Size 3.6 cm IVS Diastolic Thickness 1.2 cm 0.6 - 1.0 / 0.6 - 0.9 cm IVS Systolic Thickness 2.1 cm LVPW Diastolic Thickness 1.5 cm 0.6 - 1.0 / 0.6 - 0.9 cm LVPW Systolic Thickness 1.5 cm RV Chamber Size 3.2 cm LVOT Diameter 2.0 cm LV Ejection Fraction 2D Teich 62.5 % LV Ejection Fraction MOD 2C 62.5 % LV Ejection Fraction 2C AL 62.7 % LA Diameter 4.2 cm LA Width 4.3 cm LA Height 4.8 cm RA Width 2.3 cm RA Height 4.4 cm Aorta at Sinotubular Diameter 2.8 cm M-MODE LV Diastolic Diameter MM 4.6 cm 4.2 - 5.9 / 3.9 - 5.3 cm LV Systolic Diameter MM 2.7 cm LV Ejection Fraction MM Teich 71.6 % IVS Diastolic Thickness MM 1.0 cm 0.6 - 1.0 / 0.6 - 0.9 cm IVS Systolic Thickness MM 1.6 cm LVPW Diastolic Thickness MM 1.3 cm 0.6 - 1.0 / 0.6 - 0.9 cm LVPW Systolic Thickness MM 1.6 cm RV Diastolic Diameter MM 2.1 cm Aortic Annulus Diameter 2.8 cm LA Ao Ratio MM 1.5 MV E Point Septal Separation 0.1 cm DOPPLER AV Peak Velocity 118.0 cm/s LVOT Peak Velocity 105.0 cm/s AV Area Cont Eq vti 2.5 cm squared AV Area Cont Eq pk 2.8 cm squared MV Area PHT 3.7 cm squared Mitral E to A Ratio 1.5 MV E' Velocity 11.0 cm/s Mitral E to MV E' Ratio 8.8 Mitral E to LV E' Lateral Ratio 8.4 Mitral E to LV E' Septal Ratio 9.3 TR Peak Velocity 262.8 cm/s TR Peak Gradient 27.6 mmHg TR Mean Velocity 206.3 cm/s TR Mean Gradient 18.5 mmHg TR Velocity Time Integral 99.7 cm TV Peak E Velocity 67.0 cm/s Right Atrial Pressure 3.0 mmHg Pulmonary Artery Systolic Pressu 30.6 mmHg PV Peak Velocity 46.0 cm/s RV Acceleration Time 0.1 s RV Ejection Time 0.4 s RV AcT/ET 0.2 FINDINGS Left Ventricle Normal left ventricular size and systolic function, EF 57 %. No regional wall motion abnormalities. Right Ventricle Normal right ventricular size and systolic function, RVSP 30.6 mmHg. Right Atrium Mildly increased right atrial size. Left Atrium Mildly increased left atrial size. Mitral Valve No gross abnormalities noted Aortic Valve Thickened aortic valve. Tricuspid Valve Mild tricuspid valve regurgitation. Pulmonic Valve No gross abnormalities noted. Estimated pulmonary artery peak systolic pressure of 31 mmHg Pericardium Normal pericardium without effusion. Aorta Minimal plaques in the ascending aorta CONCLUSIONS Normal left ventricular size and systolic function, EF 57 %. No regional wall motion abnormalities. Mild biatrial enlargement Thickened aortic valve. Mild tricuspid valve regurgitation. Normal pulmonary artery peak systolic pressure. There is no pericardial effusion. There are no intracardiac masses. No previous study is available for comparison. Dr Corrina Calero MD [facility] (Electronically Signed) Final Date: 29 May 2020 08:29 S
--- NOTE | 2020-05-29 20:42 | NMCV_ITS ---
NM uriel perf SPECT r/s* [id number] Harpreet Rouse Age: 69 Gender: F : 1950 Exam Date: 05/29/2020 06:40 Ordering Phys: Corrina Calero MD ([email or web address]) Technologist: ASHLEY Carrillo Exam Location: [facility] Indications: POSS AFIB STRESS TEST Please see separate stress test report in [facility] for full findings IMAGE PROTOCOL Rest/Stress 1 Lexiscan Day Radiopharmaceutical Dose (mCi) Administration Site Administered by Rest: Tc-99m 10.8 IV ASHLEY Moon Sestamibi Stress:Tc-99m 32.9 IV ASHLEY Moon Sestamibi Rest: 29-May-2020 60 Discovery 630 Stress: 29-May-2020 30 Discovery 630 0.4mg Lexiscan. Images obtained in supine and prone position. SPECT RESULTS Technical Quality: Excellent Raw Data Analysis: Normal Image Corrections: No attenuation or motion correction applied Summed Stress Score: 1 Summed Rest Score: 4 Summed Difference Score: 0 PERFUSION FINDINGS Patchy areas of slightly decreased visibility were noted in the anterior wall and inferior wall regions. No significant reversibility was noted in these regions. FUNCTIONAL RESULTS (calculated via Gated SPECT) Stress Image LV EF (%): 72 Stress EDV (mL):89 TID: 1.18 Stress ESV (mL):25 FUNCTIONAL FINDINGS: Segmental wall motion analysis revealing no gross wall motion abnormalities. Slightly elevated transient ischemic dilatation ratio IMPRESSIONS 1. Myocardial perfusion may revealing patchy areas of persistent decreases uptake in the anterior wall and inferior wall regions, most likely represent attenuation artifacts. 2. Normal LV ejection fraction of 72% 3. LV wall motion analysis revealing no gross wall motion normalities. 4. Normal LV volume. 5. Slightly elevated transient ischemic dilatation ratio, may suggest endocardial ischemia. However the positive predictive value this finding is limited. Clinical correlation is recommended. No similar previous studies are available for comparison Dr Corrina Calero MD [facility] (Electronically Signed) Final Date: 29 May 2020 12:09 S
== END 2020-05-29 15:45 | disposition home or self-care (01) ==
LOC: ER 09:39 → CSU 13:16
PROVIDERS: Family Medicine; Admitting Provider Internal Medicine; PCP Internal Medicine; Visit Provider Internal Medicine
DX: I48.0 Paroxysmal atrial fibrillation (principal); I25.10 Atherosclerotic heart disease of native coronary artery without angina pectoris; I10 Essential (primary) hypertension; E78.5 Hyperlipidemia, unspecified; E03.8 Other specified hypothyroidism; E06.3 Autoimmune thyroiditis; K21.9 Gastro-esophageal reflux disease without esophagitis; Z95.5 Presence of coronary angioplasty implant and graft
CPT/HCPCS: 12345; 36415; 78452; 80048; 80053; 80061; 83735; 84443; 84484; 85025; 93005; 93017; 93306; 96365; 96366; 96372; 96374; 96375; 99283; 99285; A9500; G0378; J1650; J2785; J3490

== ENCOUNTER 2020-06-09 09:03 | Emergency (ER) | payer MEDICARE, SELFPAY ==
[2020-06-09 09:11] VITALS: BP 158/49; PULSE 55; RESP 18; TEMP 36.3; O2SAT 98; BMI 29.1
--- NOTE | 2020-06-09 09:11 | ECG_ITS ---
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 Measurements Intervals [place] Rate: 53 P: 55 [place]: 138 QRS: -25 QRSD: 89 T: 35 QT: 431 QTc: 407 Interpretive Statements SINUS BRADYCARDIA BORDERLINE LEFT AXIS DEVIATION [QRS AXIS < -20] MINIMAL ST DEPRESSION [0.025+ mV ST DEPRESSION] Compared to ECG 05/29/2020 00:41:09 No significant changes Electronically Signed On 06-10-2020 20:31:55 CDT by Romaine Kiser M.D. [id number] f
--- NOTE | 2020-06-09 09:33 | XRR_ITS ---
PROCEDURE INFORMATION: Exam: XR Chest, 1 View Exam date and time: 06/09/2020 9:34 AM Age: 69 years old Clinical indication: Chest pain; Prior surgery; Surgery type: Stents TECHNIQUE: Imaging protocol: XR of the chest Views: 1 view. COMPARISON: CR Chest 1 [place] [id number] 03/06/2018 9:25 PM FINDINGS: Lungs: The lungs are well aerated with no focal consolidation. No evidence of edema. Subcentimeter left apical calcified granuloma again noted. Pleural space: Unremarkable. No evidence of pleural effusion or pneumothorax. Heart/Mediastinum: Cardiac silhouette mildly enlarged. Bones/joints: Unremarkable. XR/XR chest 1V portable [id number] IMPRESSION: No acute radiographic findings.
--- NOTE | 2020-06-09 09:41 | ED_ITS ---
HPI - Arrhythmia/Palpitations General: Chief Complaint: Arrhythmia/Palpitations Stated Complaint: Low HR Time Seen by Provider: 06/09/20 09:05 Source: patient Mode of arrival: ambulatory Limitations: no limitations History of Present Illness: HPI narrative: 69-year-old female patient presents the emergency department complaining of low heart rate and just not feeling right. Patient states she is not really dizzy or lightheaded. Patient states she went into A. fib a couple weeks ago and went to see her physician and they changed her medication patient states she is now taking Plavix and Eliquis as well as they started her on Bystolic. Patient states this low heart rate in the way she is feeling did not start until after the start of this medication. Patient denies any chest pain or shortness of breath. Patient does complain of some slight nausea but denies any vomiting patient denies any fever. Patient denies any abdominal pain or urinary symptoms. Associated symptoms: Reports nausea; Deny pre-syncope, syncope or vomiting Review of Systems General: Reports: 10 or more systems reviewed and unremarkable except in HPI and below Const: Denies: fever(s) or chills Eyes: Denies: change in vision or blurry vision Card: Denies: chest pain, palpitations, irregular heart rhythm, edema, swelling of feet/ankles, lightheadedness, syncope, pre-syncope, dyspnea on exertion or orthopnea Resp: Denies: dyspnea, productive cough, non-productive cough, wheezing or pain on inspiration GI: Reports: nausea; Denies: abdominal pain or vomiting : Denies: flank pain, difficulty voiding, dysuria, urinary frequency or urinary urgency Musc: Denies: neck pain or back pain Neuro: Denies: headache(s), numbness in extremities, weakness in extremities, sensory changes, lack of coordination, difficulty walking, frequent falls, dizziness, vertigo or confusion Psych: Denies: suicidal ideation or homicidal ideation [facility] ED PFSH: Medical History ASHD (arteriosclerotic heart disease) Atherosclerosis of coronary artery of [place] heart without angina pectoris Atrial fibrillation Benign essential hypertension with target blood pressure below 140/90 Dyslipidemia Alma's thyroiditis Hypothyroidism Intermittent atrial fibrillation Surgical History S/P hysterectomy Family History Other CAD (coronary artery disease) Diabetes Social History Smoking and tobacco status: never smoked Alcohol intake: never Household members: spouse Marital status: History of recent travel: No Physical Exam Const: COMMON NORMALS: no acute distress, average body habitus, patient oriented x3, no limitations, healthy appearing, alert and well nourished HENMT: COMMON NORMALS: normocephalic, atraumatic, hearing grossly normal bilaterally, external ears normal, EAC's normal, TM's normal bilaterally, Normal external nose present, Normal nasal mucous membranes and turbinates present, moist oral mucous membranes, oropharynx normal, dentition normal and gingiva normal HEAD & SCALP: normocephalic and atraumatic NOSE: Normal external nose present and Normal nasal mucous membranes and turbinates present EXTERNAL EAR: Yes external ears normal EXTERNAL AUDITORY CANAL: EAC's normal TYMPANIC MEMBRANE: TM's normal bilaterally Eye: COMMON NORMALS: Equal, round and reactive pupils present, EOMs intact adan aterally, conjunctivae normal, no scleral icterus, no papilledema, normal visual vincent by confrontation and fundi normal bilaterally CONJUNCTIVA: Yes conjunctivae normal PUPIL: Yes Equal, round and reactive pupils present DIRECT OPHTHALMOSCOPY: Yes no papilledema and Yes fundi normal bilaterally Neck/C-Spine: COMMON NORMALS: full ROM, no lymphadenopathy, supple, no meningeal signs, no JVD, Thyroid normal and No carotid bruits THYROID: Thyroid normal Chest: COMMONS NORMALS: normal inspection of the chest, normal palpation of entire chest wall, normal inspection of the breasts and normal palpation of the breasts Resp: COMMON NORMALS: normal respiratory effort, No retractions, No use of accessory muscles, clear to auscultation bilaterally and percussion normal AUSCULTATION: clear to auscultation bilaterally PERCUSSION: percussion normal Cardio: COMMON NORMALS: no JVD, regular rhythm, No gallops present (Cardio), No clicks present (Cardio), No murmurs present (Cardio) and No rub (Cardio) RATE: bradycardic RHYTHM: regular rhythm GI: COMMON NORMALS: Normal to inspection, nondistended, normoactive bowel sounds present, Soft to palpation, non-tender, No hepatosplenomegaly present, no masses and no bruits PALPATION: Yes Soft to palpation and Yes No hepatosplenomegaly present : COMMON NORMALS: Yes no CVA tenderness BLADDER/KIDNEY EXAM: Yes no CVA tenderness Back/Pelvis: COMMON NORMALS: no CVA tenderness, thoracic and lumbar spine normal to inspection, no thoracic nor lumbar tenderness, thoraco-lumbar ROM normal and straight leg raise negative bilaterally Extremity: COMMON NORMALS: normal to inspection, full ROM, capillary refill normal, no joint enlargement, no clubbing, cyanosis or edema, no calf tenderness and no pedal edema Neuro: COMMON NORMALS: patient oriented x3, CN's II-XII intact bilaterally, moves all extremities, no focal motor deficits, no sensory deficits noted, deep tendon reflexes 2+ bilaterally and gait normal SENSORIUM/ORIENTATION: Yes alert MENINGEAL SIGNS: Yes no meningeal signs Psych: COMMON NORMALS: mental status grossly normal, Normal thought process present, cooperative, normal affect, speech normal, activity/motor behavior normal, denies hallucinations, denies homicidal ideation and denies suicidal ideation SPEECH: Yes normal speech THOUGHT PROCESS: Normal thought process present Skin: COMMON NORMALS: no rashes or lesions noted, no wounds, turgor normal, no jaundice, no petechiae and no mottling GENERAL SKIN EXAM: no rashes or lesions noted and turgor normal Course Vital Signs: Vital signs: Vital Signs Temperature 97.3 F L 06/09/20 09:11 Pulse Rate 48 L 06/09/20 12:13 Respiratory Rate 17 06/09/20 12:13 Blood Pressure 143/52 06/09/20 12:13 Pulse Oximetry 96 06/09/20 12:13 MDM - Arrhythmia/Palpitations MDM Narrative: Medical decision making narrative: Pt is well appearing non toxic and in no acute distress. Pt denies any light headedness or dizziness. patient presents the emergency department complaining of low heart rate and just not feeling right. Patient states she is not really dizzy or lightheaded. Patient states she went into A. fib a couple weeks ago and went to see her physician and they changed her medication patient states she is now taking Plavix and Eliquis as well as they started her on Bystolic. Patient states this low heart rate in the way she is feeling did not start until after the start of this medication. Patient denies any chest pain or shortness of breath. Patient does complain of some slight nausea but denies any vomiting patient denies any fever. Patient denies any abdominal pain or urinary symptoms. EKG reveals sinusbrady but st elevation or depression noted. Labs do not reveal any concerning findings. I called and spoke with Cardiologust Dr. Hutchins who is director of land acquisition for dr lopez. I was advised to have patient stop the bystolic and follow up with Dr. Lopez on thursday. Pts heart rate has been 52-55 while here in the ER. VS otherwise stable. Return preautions discussed with patient as well as home care. Lab Data: Labs: Lab Results 06/09/20 06/09/20 06/09/20 Range/Units 10:02 10:02 10:02 WBC 7.4 (4.0-10.0) 10^3/ uL RBC 4.42 (4.1-5.3) 10^6/u L Hgb 13.5 (11.5-15.3) g/dL Hct 43.0 (37.0-47.0) % MCV 97.3 (81-99) fL MCH 30.5 (28.0-34.0) pg MCHC 31.4 (30.0-36.0) g/dL RDW 13.2 (12.1-15.1) % Plt Count 252 (130-400) 10^3/c mm MPV 10.9 H (7.4-10.4) fL Neut % (Auto) 79.5 % Lymph % (Auto) 15.3 % Benton % (Auto) 3.7 % Eos % (Auto) 0.7 % Baso % (Auto) 0.7 % Neut # (Auto) 5.88 (1.8-7.7) 10^3/u L Lymph # (Auto) 1.1 (0.8-4.8) 10^3/u L Benton # (Auto) 0.3 (0.2-0.9) 10^3/u L Eos # (Auto) 0.1 (0.0-0.8) 10^3/u L Baso # (Auto) 0.1 (0.0-0.1) 10^3/u L Nucleated RBC % (a uto) 0 % Nucleated RBCs # 0.0 /100WBC PT 13.20 (12.1-14.9) SECO NDS INR 0.97 (0.8-1.2) APTT 30.3 (23.9-36.7) SECO NDS Troponin T Gen 5 n g/L 6 (0-10) ng/L TSH (0.27-4.20) uIU/ mL 06/09/20 Range/Units 10:02 WBC (4.0-10.0) 10^3/ uL RBC (4.1-5.3) 10^6/u L Hgb (11.5-15.3) g/dL Hct (37.0-47.0) % MCV (81-99) fL MCH (28.0-34.0) pg MCHC (30.0-36.0) g/dL RDW (12.1-15.1) % Plt Count (130-400) 10^3/c mm MPV (7.4-10.4) fL Neut % (Auto) % Lymph % (Auto) % Benton % (Auto) % Eos % (Auto) % Baso % (Auto) % Neut # (Auto) (1.8-7.7) 10^3/u L Lymph # (Auto) (0.8-4.8) 10^3/u L [place] # (Auto) (0.2-0.9) 10^3/u L Eos # (Auto) (0.0-0.8) 10^3/u L Baso # (Auto) (0.0-0.1) 10^3/u L Nucleated RBC % (a uto) % Nucleated RBCs # /100WBC PT (12.1-14.9) SECO NDS INR (0.8-1.2) APTT (23.9-36.7) SECO NDS Troponin T Gen 5 n g/L (0-10) ng/L TSH 2.32 (0.27-4.20) uIU/ mL Discharge Plan Discharge Patient Disposition: Home Clinical Impression: Bradycardia Condition: Stable Prescriptions: No Action clopidogrel 75 mg tablet 75 mg PO DAILY RF: 0 omeprazole magnesium [Prilosec OTC] 20 mg tablet,delayed release (DR/EC) 20 mg PO DAILY PRN (Reason: Heartburn) RF: 0 pravastatin 20 mg tablet 10 mg PO DAILY RF: 0 levothyroxine 100 mcg tablet 100 mcg PO DAILY Qty: 90 RF: 3 isosorbide mononitrate 30 mg tablet extended release 24 hr 15 mg PO DAILY RF: 0 Bystolic 5 mg tablet 2.5 mg PO DAILY Qty: 90 RF: 3 Eliquis 5 mg Tablet 5 mg PO BID Qty: 60 RF: 0 Multiple Vitamin, Womens Tablet 1 tab PO DAILY RF: 0 Discharge Orders: Discharge Order (Routine); Ordered 06/09/20 Ordered By: Roberta Alanis Referrals: Jose Hill MD [Primary Care Provider] - Oren Lopez MD [Physician] - 06/11/20 Discharge Diet: Advance as tolerated Discharge Activity: Resume usual activity Activity Restrictions/Additional Instructions: Please hold Bystolic until seen by [facility] Director. Please return to ER with any chest pain shortness of breath dizziness low heart rate or any other ocncerning symptoms Discharge Date/Time: 06/09/20 12:13 Coding Level of Care Code ED Blood Bank Laboratory Technologist for Ailing Fwd Exam Comprehensive
[2020-06-09 10:10] LABS: Basophils # 0.1 10^3/uL (0.0-0.1); Basophils % 0.7 %; Eosinophils # 0.1 10^3/uL (0.0-0.8); Eosinophils % 0.7 %; Hemoglobin 13.5 g/dL (11.5-15.3); Lymphocytes # 1.1 10^3/uL (0.8-4.8); Lymphocytes % 15.3 %; Mean Corpuscular HGB Conc 31.4 g/dL (30.0-36.0); Mean Corpuscular Hemoglobin 30.5 pg (28.0-34.0); Mean Corpuscular Volume 97.3 fL (81-99); Mean Platelet Volume 10.9 fL (7.4-10.4); Monocytes # 0.3 10^3/uL (0.2-0.9); Monocytes % 3.7 %; Neutrophils # 5.88 10^3/uL (1.8-7.7); Neutrophils % 79.5 %; Nucleated Red Blood Cells % 0 %; Platelet Count 252 10^3/cmm (130-400); Red Blood Count 4.42 10^6/uL (4.1-5.3); Red Cell Distribution Width 13.2 % (12.1-15.1); White Blood Count 7.4 10^3/uL (4.0-10.0)
[2020-06-09 10:30] LABS: INR 0.97 (0.8-1.2)
[2020-06-09 10:31] LABS: Partial Thromboplastin Time 30.3 SECONDS (23.9-36.7)
[2020-06-09 10:50] LABS: Thyroid Stimulating Hormone 2.32 uIU/mL (0.27-4.20)
[2020-06-09 11:27] LABS: Troponin T (5th) Once 6 ng/L (0-10)
[2020-06-09 11:30] VITALS: BP 127/53; PULSE 52; RESP 16; O2SAT 98
[2020-06-09 11:32] VITALS: BP 133/55; PULSE 49
[2020-06-09 11:35] VITALS: BP 163/60; PULSE 53
[2020-06-09 11:39] VITALS: BP 141/63; PULSE 55
[2020-06-09 12:13] VITALS: BP 143/52; PULSE 48; RESP 17; O2SAT 96
== END 2020-06-09 12:13 | disposition home or self-care (01) ==
PROVIDERS: Emergency Provider Registered Nurse; PCP Internal Medicine
DX: R00.1 Bradycardia, unspecified (principal); Z79.02 Long term (current) use of antithrombotics/antiplatelets; Z79.01 Long term (current) use of anticoagulants; I48.91 Unspecified atrial fibrillation; I10 Essential (primary) hypertension; E78.5 Hyperlipidemia, unspecified
CPT/HCPCS: 12345; 36415; 71045; 84443; 84484; 85025; 85610; 85730; 93005; 99283